=== PATIENT | female | born 1975 | race Caucasian/White ===

== ENCOUNTER 2016-09-20 01:22 | Emergency (ER) | payer OTHER ==
[~2016-09-20] VITALS: Ht 170.2 cm; Wt 63.6 kg
[~2016-09-20 01:22] MED LIST: AMPH5TAB2 PO
[2016-09-20 01:34] VITALS: BP 117/81; PULSE 92; RESP 16; O2SAT 97
--- NOTE | 2016-09-20 02:09 | ED.REPORT ---
HPI-URI / Cough / Cold Date of Service Sep 20, 2016 ED Provider: Chang Diaz MD 40 year old female presents to the ER accompanied by her spouse complaining of nasal congestion onset 09/09/16, worsening over the past few days. Associated symptoms include sore throat, cough that elicits vomiting, and sores on the inside of her mouth. She also mentions that on 08/31/16 experienced some chest pain and difficulty breathing. Nursing Notes Stated Complaint: CONGESTION/ TROUBLE BREATHING Chief Complaint: FLU/Cold Symptoms Nursing Notes Reviewed: Yes Allergies: Coded Allergies: Amoxicillin (Verified Allergy, 05/31/13) Scheduled Mixed Amphet-Expunged Drug, Do Not Renew! (Mixed Amphet-Expunged Drug, Do Not Renew!) 5 Mg Tablet 5 MG PO DAILY General Time Seen by MD: 02:06 Chief Complaint Nasal congestion, Sore throat Hx Obtained From: Patient Arrived By: Walk-in Onset Occurred: More than a week ago... (12 days) Symptom Duration: Since onset Associated with: Reports: Chest pain, Cough, Rhinorrhea, Vomiting Past Medical History Past Medical History Healthy Past Surgical History Rhinoplasty Smoking History Never Smoker Social History Alcohol Use: "Social" Other Social History: Good social support Ambulatory Status Independent Review of Systems Constitutional: Denies: Chills, Fever Ears / Nose / Throat: Reports: Nasal congestion, Sinus problem, Sore throat Respiratory: Reports: Non-productive cough, Shortness of breath GI: Reports: Vomiting, Denies: Abdominal pain, Constipation, Diarrhea, Nausea Neurologic: Denies: Headache Complete sys rev & neg: except as marked. Cardiovascular: Reports: Chest pain Physical Exam Initial Vital Signs Vital Signs (First) Date Time Temp Pulse Resp B/P Pulse Ox O2 Delivery O2 Flow Rate FiO2 09/20/16 01:34 36.4 92 16 117/81 97 Room Air Initial VS: Reviewed, Vital signs normal Head / Eyes: Atraumatic, Normocephalic Neck: Supple, Non-tender, Full range of motion Abdomen / GI: Soft, Non-tender, No guarding, No rebound, No distention Extremities: Vascular intact, Neuro intact, No swelling, No tenderness Skin: Warm, Dry, No cyanosis Neurologic: Alert, Oriented, Nonfocal General/Constitutional: Awake, Alert, Well developed, Well nourished ENT: Airway patent, Mucous membranes moist, Tympanic membs NL Sinus: Positive: Tender frontal L, Tender frontal R, Tender mild Aphthous ulcers on the lower gums and roof of mouth. Respiratory / Chest: Breath sounds NL, Breath sounds = bilat, No respiratory distress, No rales, No rhonchi, No wheezing, No retractions, No stridor Re-Eval/Medical Decision Med Decision/Clinical Course Negative influenza. Uncomplicated URI with sinus infection. Counseled Regarding: Diagnosis, Lab results, Need for follow-up, When/why to return to ED Discharge & Departure Impression: Primary Impression: Viral URI Additional Impression: Sinusitis Sinusitis location: maxillary Chronicity: acute Recurrence: non-recurrent Qualified Code: J01.00 - Acute maxillary sinusitis, unspecified Disposition: Home Discharge Condition All VS Reviewed: Yes Condition: Stable Patient Instructions: Sinusitis (ED) Additional Instructions: No influenza and no strep throat. Afrin (oxymetazoline) nasal spray, one spray in each nostril 3 times a day for 3 or 4 days, #1 dispensed. Azithromycin 250 mg 2 pills now then one daily until gone, #6 dispensed. Antibiotics will not help. Get plenty of rest and plenty of sleep. Referrals: Alexis Aguillon DO (PCP) Scribe Attestation Portions of this note were transcribed by Hoang Wu. I, Dr. Diaz, personally performed the history, physical exam and medical decision-making; I reviewed and confirmed the accuracy of the information in the transcribed note. Signed by: Stephani Hong. 09/20/2016, 02:19 copies to: Alexis Aguillon Howard L MD Sep 20, 2016 02:09 HOANG WU Sep 20, 2016 02:19
[2016-09-20] MEDS ORDERED: _Azithromycin 250 mg Tablet PO SCH (02:20)
[2016-09-20 02:53] VITALS: BP 108/70; PULSE 70; RESP 14
== END 2016-09-20 02:56 | disposition home or self-care (01) ==
LOC: SED 01:22
DX: J06.9 Acute upper respiratory infection, unspecified (principal); J01.00 Acute maxillary sinusitis, unspecified; Z98.890 Other specified postprocedural states; Z88.1 Allergy status to other antibiotic agents